=== PATIENT | female | born 1985 | race Caucasian/White ===

== ENCOUNTER 2016-11-13 19:46 | Emergency (ER) | payer OTHER ==
[2016-11-13 19:57] VITALS: BP 128/84
[2016-11-13] MEDS ORDERED: TETANUS/DIPHTHERIA/PERTUSSIS 0.5 ML SYRINGE IM ONE ×2 (20:27→20:38)
--- NOTE | 2016-11-13 20:28 | ED Physician Documentation ---
PD HPI LOWER EXT INJURY - Stated complaint Stated Complaint: RT FOOT INJ - Chief complaint Chief Complaint: General - History of Present Illness PD HPI LOW EXT INJURY LOCATION: Right, Foot Type of injury: Puncture wound Where injury occurred: Street Timing - onset: Today Timing - details: Abrupt onset Improved by: Immobilization Worsened by: Moving, Palpating Similar symptoms before: Has not had sx before Recently seen: Not recently seen - Additional information Additional information: Patient is a 31 year old female with no significant past medical history who is presenting to the emergency department for a puncture wound. patient states that she stepped on a nail earlier today. Review of Systems Constitutional: denies: Fever, Chills Eyes: reports: Loss of vision, Reviewed and negative Nose: reports: Reviewed and negative Throat: reports: Reviewed and negative Respiratory: denies: Cough, Wheezing GI: denies: Nausea, Vomiting : reports: Reviewed and negative Skin: reports: Lesions, Laceration (s) Musculoskeletal: reports: Extremity pain. denies: Extremity swelling Neurologic: denies: Focal weakness, Numbness Immunocompromised: denies: Immunocompromised PD PAST MEDICAL HISTORY - Past Medical History Cardiovascular: None Respiratory: None Neuro: None Endocrine/Autoimmune: None GI: None [employer]EDIAL [employer]SEUR: None : None HEENT: None Psych: Anxiety Musculoskeletal: None Derm: Eczema - Past Surgical History Past Surgical History: No - Present Medications Home Medications: Ambulatory Orders Medication Instructions Recorded Confirmed Ciprofloxacin/Ciprofloxa HCl 500 mg PO BID #10 tbmp.24hr 11/13/16 [Ciprofloxacin ER 500 mg Tablet] DULoxetine [Cymbalta] 30 mg PO DAILY 11/13/16 11/13/16 Gabapentin 100 mg PO 11/13/16 - Allergies Allergies/Adverse Reactions: Allergies Allergy/AdvReac Type Severity Reaction Status Date / Time No Known Drug Allergies Allergy Verified 11/13/16 19:57 - Social History Does the pt smoke?: No Smoking Status: Never smoker Does the pt drink ETOH?: No - Immunizations Immunizations are current?: No Immunizations: TDAP >10years/unknown PD ED PE NORMAL - Vitals Vital signs reviewed: Yes - General General: Alert and oriented X 3, No acute distress - HEENT HEENT: Atraumatic, PERRL - Neck Neck: Supple, no meningeal sign - Cardiac Cardiac: RRR, No murmur - Respiratory Respiratory: No respiratory distress - Abdomen Abdomen: Soft, Non tender, Non distended - Derm Derm: Warm and dry - Neuro Neuro: Alert and oriented X 3, No motor deficit, No sensory deficit, Normal speech - Psych Psych: Normal mood, Normal affect PD ED PE EXPANDED - Extremities Extremities: Right foot (miniscule puncture wound of left foot, no erythema, minimal tenderness) Results - Vitals Vitals: Vital Signs - 24 hr 11/13/16 19:56 Temperature 36.3 C L Heart Rate 83 Respiratory 16 Rate Blood Pressure 128/84 H O2 Saturation 100 Oxygen O2 Source Room air PD MEDICAL DECISION MAKING - ED course Complexity details: reviewed old records, re-evaluated patient, d/w patient ED course: Patient was seen and examined at bedside. patient's wound was well appearing. Patient was treated with tetanus. Patient was given detailed discharge instructions including antibiotics if necessary. patient was stable for discharge with outpatient follow up. Departure - Departure Disposition: 01 Home, Self Care Clinical Impression: Puncture wound of foot Condition: Good Instructions: ED Wound Puncture General Prescriptions: Ciprofloxacin/Ciprofloxa HCl [Ciprofloxacin ER 500 mg Tablet] 500 mg PO BID #10 tbmp.24hr Comments: Your wound today looked well appearing. I will write you for antibiotics but will only need to take them if you see any signs of infection (increased redness , swelling or pain). You should return to the emergency department at any time for new, worsening or uncontrollable symptoms. Discharge Date/Time: 11/13/16 21:04
== END 2016-11-13 21:04 | disposition home or self-care (01) ==
LOC: ED 19:46
DX: S91.331A Puncture wound without foreign body, right foot, initial encounter (principal); W45.0XXA Nail entering through skin, initial encounter; Y93.01 Activity, walking, marching and hiking; Y92.488 Other paved roadways as the place of occurrence of the external cause; Z23 Encounter for immunization
CPT/HCPCS: 90471; 99283

== ENCOUNTER 2019-09-15 12:26 | Outpatient (CLI) | payer OTHER ==
--- NOTE | 2019-09-15 14:21 | MRI Report ---
PROCEDURE: Shoulder LT W/O INDICATIONS: SOFT TISSUE DISORDER TECHNIQUE: Noncontrast oblique coronal T2 fast spin echo with fat saturation, oblique sagittal T1 spin echo and T2 fast spin echo with fat saturation, axial T1 spin echo and T2 fast spin echo with fat saturation t hrough the shoulder. COMPARISON: None. FINDINGS: Image quality: Excellent. Rotator cuff: Tendinosis and low-grade articular and bursal surface partial thickness tear involving distal supraspinatus at its insertion on humeral head is seen. Distal infraspinatus and subscapularis tendons are grossly intact. No full-thickness rotator cuff tendon rupture. No rotator cuff muscle at rophy on sagittal images. Bones and bursae: No bone marrow contusions or fractures. No acromioclavicular joint degeneration. The acromion demonstrates conventional anatomy, without an os acromiale. No pathologic subacromial/ subdeltoid bursal fluid is present. Capsule and soft tissues: In the absence of intra-articular contrast, there is signal abnormality an d contour irregularity involving superior anterior labrum at 12 to 1:00 position suggestive of superi or anterior labral tear. The glenohumeral ligaments appear intact. The long head of the biceps tendi nosis is seen. The rotator interval appears normal, without fibrosis. The coracohumeral ligament is normal in thickness. IMPRESSION: 1. Tendinosis and low-grade articular and bursal surface partial-thickness tear involving distal supr aspinatus at its insertion on the humeral head. No full-thickness rotator cuff tendon rupture. 2. No marrow edema. No fracture or dislocation. 3. Finding is concerning for subtle superior anterior labral tear at 12 to 1:00 position. 4. Proximal intra-articular portion of long head of biceps tendinosis. Reviewed by: Elbret Smith MD on 09/15/2019 2:19 PM PDT Approved by: Elbert Smith MD on 09/15/2019 2:19 PM PDT Station ID: [id number]
== END 2019-09-15 12:27 | disposition home or self-care (01) ==
LOC: DI 12:26
PROVIDERS: ATTEND Family Medicine
DX: M75.112 Incomplete rotator cuff tear or rupture of left shoulder, not specified as traumatic (principal); M67.814 Other specified disorders of tendon, left shoulder; R93.6 Abnormal findings on diagnostic imaging of limbs

== ENCOUNTER 2020-06-20 07:44 | Outpatient (CLI) | payer OTHER | END 2020-06-20 07:45 | disposition home or self-care (01) | LOC: DI 07:44 | PROVIDERS: ATTEND Family Medicine | DX: R00.2 Palpitations (principal); R25.1 Tremor, unspecified; R53.1 Weakness | CPT/HCPCS: 93306 ==